=== PATIENT | male | born 1955 | race Caucasian/White ===

== ENCOUNTER 2016-11-14 09:31 | Day surgery (SDC) | payer OTHER ==
[2016-11-13 12:00] VITALS: BMI 32.8
[2016-11-14] MEDS ORDERED: PROPOFOL 20 ML ONE ×2 (10:45)
[2016-11-14 11:31] VITALS: TEMP 97.5
[2016-11-14 12:45] VITALS: BP 142/85; PULSE 57
--- NOTE | 2016-11-17 11:36 | PATH ---
Surgical Pathology Report Patient Name: ARIES ALAMO [facility]. Rec. #: [id number] /Age/Gender: 1955 (Age: 61) / M Account: [id number] Location: U-ENDOSCOPY Taken: 11/14/2016 Received: 11/14/2016 Reported: 11/17/2016 Physicians: Prosper Rosenthal M.D. Specimen(s) Received A: POLYP SIGMOID B: TRANSVERSE COLON POLYP C: BX DESCENDING COLON POLYP D: BX RECTAL POLYP Clinical History History of colon polyp Polyps, diverticulosis Final Diagnosis A. COLON, SIGMOID, POLYP POLYPECTOMY: HYPERPLASTIC POLYP. B. COLON, TRANSVERSE, POLYP, POLYPECTOMY: SERRATED ADENOMA. C. COLON, DESCENDING, POLYP BIOPSY: HYPERPLASTIC POLYP. D. RECTUM, POLYP, BIOPSY: FRAGMENTS OF HYPERPLASTIC POLYP WITH SERRATED FEATURES. Electronically Signed Victor Manuel Marin M.D. Gross Description A. Received in formalin, labeled "sigmoid polyp" is a north, irregular portion of soft tissue measuring 0.2 cm in greatest dimension. The specimen is submitted in toto in one cassette. B. Received in formalin, labeled "transverse colon polyp" is a north, irregular portion of soft tissue measuring 0.3 cm in greatest dimension. The specimen is submitted in toto in one cassette. C. Received in formalin, labeled "biopsy descending colon polyp" is a north, irregular portion of soft tissue measuring 0.2 cm in greatest dimension. The specimen is submitted in toto in one cassette. D. Received in formalin, labeled "biopsy rectal polyp" is 2 pieces of north tissue measuring 0.2 cm in greatest dimension. The specimen is submitted in toto in one cassette. INDIGO/11/14/2016 [facility]/11/14/2016
== END 2016-11-14 12:30 | disposition home or self-care (01) ==
LOC: JASU-ENDO 09:31
PROVIDERS: ATTEND Internal Medicine Gastroenterology
PROC: 0DBN8ZX Excision of Sigmoid Colon, Via Natural or Artificial Opening Endoscopic, Diagnostic (ICD-10-PCS; 2016-11-14)
PROC: 0DBP8ZX Excision of Rectum, Via Natural or Artificial Opening Endoscopic, Diagnostic (ICD-10-PCS; 2016-11-14)
PROC: 0DBM8ZX Excision of Descending Colon, Via Natural or Artificial Opening Endoscopic, Diagnostic (ICD-10-PCS; principal; 2016-11-14 10:45)
DX: Z12.11 Encounter for screening for malignant neoplasm of colon (principal); Z86.010 Personal history of colon polyps; K62.1 Rectal polyp; D12.4 Benign neoplasm of descending colon; D12.5 Benign neoplasm of sigmoid colon; K57.30 Diverticulosis of large intestine without perforation or abscess without bleeding; K64.8 Other hemorrhoids
CPT/HCPCS: 88305-TC